=== PATIENT | female | born 1950 | race Caucasian/White ===

== ENCOUNTER → 2024-03-31 14:36 | Outpatient (REF) | payer OTHER, SELFPAY | LOC: HWRAD 14:36 | PROVIDERS: ATTENDING PHYSICIAN Nurse Practitioner Primary Care | DX: M79.651 Pain in right thigh (principal); M76.31 Iliotibial band syndrome, right leg; R22.41 Localized swelling, mass and lump, right lower limb | CPT/HCPCS: 73552; 76882 ==

== ENCOUNTER → 2024-04-05 09:30 | Outpatient (REF) | payer OTHER, SELFPAY | LOC: WDC 09:30 | PROVIDERS: ATTENDING PHYSICIAN Nurse Practitioner Primary Care | DX: Z13.820 Encounter for screening for osteoporosis (principal); Z12.31 Encounter for screening mammogram for malignant neoplasm of breast | CPT/HCPCS: 77063; 77067; 77080 ==

== ENCOUNTER 2024-04-24 07:20 | Emergency (ER) | payer OTHER, SELFPAY ==
[2024-04-24 07:25] VITALS: BP 124/85
[2024-04-24 08:01] LABS: % Basophils 0.7 % (0-2); % Eosinophils 1.8 % (0-6); % Immature Granulocytes 0.1 % (0-0.5); % Lymphocytes 18.3 % (20.5-51.1); % Monocytes 10.1 % (1.7-9.3); Absolute Basophils 0.1 10^3/uL (0-0.2); Absolute Eosinophils 0.1 10^3/uL (0-0.7); Absolute Lymphocytes 1.2 10^3/uL (1.2-3.4); Absolute Monocytes 0.7 10^3/uL (0.1-0.6); Absolute Neutrophils 4.7 10^3/uL (1.4-6.5); Hematocrit 41.9 % (37.0-47.0); Mean Corp Hgb Conc. 35.8 g/dL (33.0-37.0); Mean Corpuscular Hgb 31.3 pg (27.0-31.0); Mean Corpuscular Volume 87.5 fL (81.0-99.0); Mean Platelet Volume 9.9 fL (7.4-10.4); Nucleated Red Blood Cells % 0 %; Platelet Count 317 10^3/uL (130-400); Red Blood Cell Count 4.79 10^6/uL (4.20-5.40); Red Cell Dist. Width 12.3 % (11.5-14.5); White Blood Cell Count 6.8 10^3/uL (4.8-10.8)
[2024-04-24 08:05] LABS: ALT (SGPT) 27 U/L (0-35); AST (SGOT) 30 U/L (14-36); Albumin 4.7 g/dl (3.5-5.0); Alkaline Phosphatase 95 U/L (38-126); Blood Urea Nitrogen 11 mg/dl (7-17); Calcium 9.8 mg/dl (8.4-10.2); Carbon Dioxide 25 mmol/L (22-30); Chloride 104 mmol/L (98-107); Glucose 103 mg/dl (70-99); Sodium 140 mmol/L (135-145); Total Bilirubin 1.2 mg/dl (0.2-1.3); Total Protein 7.3 g/dl (6.3-8.2); eGFR > 60.00
[2024-04-24 08:17] LABS: Troponin I < 0.012 ng/ml
[2024-04-24 11:27] VITALS: BMI 39.0
--- NOTE | 2024-04-24 11:44 | ED.GENMED ---
History of Present Illness
General
Chief Complaint: Heart Rate Problem
Source: patient
Exam Limitations: none
Time Seen by Provider: 04/24/24 11:36
History of Present Illness
History of Present Illness:
See MDM
Past History
Past History
ED Past Medical History: Arrthythmia (Atrial fibrillation), Asthma, COPD and HTN
Social History
Tobacco: Former smoker
Alcohol: None
Drug: None
Phy Exam
Physical Exam
Physical Exam:
See MDM
Course
Orders/Labs/Results
Orders:
Orders
04/24/24 07:24
Electrocardiogram (*1) Urgent
Reason for Study: Bradycardia / Tachycardia
EKG- Treatment ONCE
04/24/24 07:32
CXR2 [CR Chest - 2 Views ] Urgent
Comment:
Reason For Exam: heart racing
04/24/24 07:37
Complete Blood Count/With Diff Urgent
Comprehensive Metabolic Panel Urgent
Troponin I Urgent
04/24/24 11:51
Consult Cardiology [CARDIOLOGY CONSULT] Urgent
Consulting Provider: Estevan Joel
Was physician already notified: Yes
04/24/24 13:56
Apixaban [Eliquis] 5 mg PO STAT STA
Abnormal Lab Results
04/24/24
07:37
MCH 31.3 H pg
(27.0-31.0)
Absolute Monos (auto) 0.7 H 10^3/uL
(0.1-0.6)
Lymphocytes % 18.3 L %
(20.5-51.1)
Monocytes % 10.1 H %
(1.7-9.3)
Glucose 103 H mg/dl
(70-99)
04/24/24 07:37
04/24/24 07:37
Vital Signs
Initial and Last Documented VS:
Initial Vital Signs
Temp Pulse Resp BP Pulse Ox
97.5 F 106 16 124/85 98
04/24/24 07:25 04/24/24 07:25 04/24/24 07:25 04/24/24 07:25 04/24/24 07:25
Last Documented Vital Signs
Temp Pulse Resp BP Pulse Ox
97.5 F 84 19 121/88 98
04/24/24 07:25 04/24/24 15:17 04/24/24 15:17 04/24/24 15:17 04/24/24 15:17
MDM/Problems Addressed
Differential Diagnosis Includes:
HPI and MDM Narrative:
73-year-old female presenting for evaluation of elevated heart rate. Patient does acknowledge that she feels weak. Her Apple Watch had indicated that her heart rate was fast. On arrival, EKG was performed showing A-fib with RVR. However, she
intermittently goes into a paced rhythm on the monitor. She denies chest pain or palpitations. She states she has required ablations and cardioversions in the past. Patient is currently on sotalol 80 mg twice daily
Blood work and chest x-ray performed prior to my evaluation. Chest x-ray clear and blood work without clinically significant abnormalities.
Patient is well-appearing and nontoxic and heart rate intermittently goes into a paced rhythm. Will discuss case with cardiology
Physical exam
General: Well appearing and non-toxic
HEENT: protecting airway
Neck: appears supple
CV: No evidence of cyanosis. Tachycardic and intermittently going between regular and irregular
Resp: No accessory muscle use
Abd: Non-distended
Extremities: No deformities
Neuro: alert
Psych: Normal affect
Skin: Intact
Problems Addressed including Acute and Chronic Conditions affecting care:
1. A-fib
Acuity: acute
Prognosis: stable
Details: Patient intermittently going between A-fib and paced rhythm. Blood work without clinically significant abnormalities.
Updates
11:50 AM Case discussed with cardiology who will evaluate at bedside
Cardiology evaluated patient and discussed continuing meds as previously prescribed and will set up outpatient cardioversion
Differential Diagnosis (but not limited to): A-fib,
Testing considered:
Drug therapy (if applicable): OTC meds, please see d/c instruction regarding Rx drugs
Amount and/or Complexity of Data Reviewed
Clinical info obtained from: Patient
External data reviewed: N/A
Labs I independently reviewed (but not limited to): Troponin normal
Radiology: N/A
Pulse Ox: not hypoxic
EKG independently reviewed: A-fib with intermittent paced complexes, normal axis, no STEMI
Desk Assistant: Intermittently between A-fib and ventricular paced rhythm
Critical Care: N/A
Risk of Complication:
Social Determinants of health: Good social support
Discussed with other providers: Cardiology
Escalation of Care includes Admit/Obs: After being observed in the Emergency Department, pt stable for discharge.
Occasional wrong word or 'sound a like' substitutions may have occurred due to the inherent limitations of voice recognition software. Read the chart carefully and recognize, using context, where substitutions have occurred.
*Critical Care Note
Total Time (30-74mins, 75-104mins- exclusive of procedures): Not Applicable
ED Attending Note
-
Portions of this chart may have been created with voice recognition software.� Occasional wrong word or��sound alike� substitutions may have occurred due to the inherent limitations of voice recognition software.
Discharge Plan
Departure
Patient Disposition: Home (Routine Discharge)
Date of Disposition: 04/24/24
Time of Disposition: 14:45
Patient with high blood pressure during this ER visit?: No
Condition: Good
Discharge Problem:
Atrial fibrillation
Instructions: Atrial Fibrillation (DC)
Prescriptions:
No Action
atorvastatin 40 MG tablet
40 mg PO HS
furosemide 20 MG tablet
20 mg PO DAILY
multivitamin Tablet
1 tab PO BID
metoprolol succinate 25 mg Tablet Extended Release 24 Hr
25 mg PO HS
losartan 100 mg Tablet
100 mg PO HS
Bioflex 310-88-17-40 mg Tablet
1 tab PO BID
Spiriva Respimat 2.5 mcg/actuation Mist
2 inh INHALATION DAILY
PreserVision AREDS-2 250-90-40-1 mg Capsule
1 tab PO BID
Magnesium Tourate 400mg
1 tab PO BID
Sucontral D
1 tab PO DAILY
oregano oil 1,500 mg Capsule
1,500 mg PO HS
Billings Concentrate
1 tab PO BID
coenzyme Q10 100 mg Tablet
100 mg PO DAILY
Probiotic (B. coagulans) 250 million cell Tablet,Chewable
250 cell PO BID
Mullum Extract 1 Dropper
1 drp PO BID
amlodipine 5 mg Tablet
5 mg PO HS Qty: 0 0RF
Eliquis 5 MG tablet
5 mg PO BID Qty: 0 0RF
omega-3 fatty acids 1,250 mg Capsule
1,250 mg PO BID
levalbuterol tartrate [Xopenex HFA] 45 mcg/actuation Hfa Aerosol Inhaler
1 puff INHALATION Q6H PRN (Reason: sob)
My Community Mushrooms
1 cap PO BID
calcium 600 mg Capsule
600 mg PO BID
biotin 1,000 mcg Tablet,Chewable
1,000 mcg PO HS
silver sulfadiazine [Silvadene] 1 % cream
1 applic topical BID PRN (Reason: Skin issues)
sotalol 80 mg tablet
80 mg PO BID Qty: 180 5RF
Referrals:
Jaelyn Garcia CRNP [Family Provider] -
Interventions
Interventions:
*Risk Screen - Suicide Last Done: 04/24/24 07:25
*General Assessment Last Done: 04/24/24 11:33
*Neglect/Abuse Screening Last Done: 04/24/24 07:25
ED- Fall Risk Assessment Last Done: 04/24/24 11:36
*ED COVID-19 Vaccine History Last Done: 04/24/24 11:33
*Nursing Disposition Last Done: 04/24/24 15:17
ED- Cardiac Assessment Last Done: 04/24/24 11:35
ED- Pulmonary Assessment Last Done: 04/24/24 11:35
Discharge Date and Time
Discharge Date/Time: 04/24/24 15:18
Print Language: INDONESIAN
--- NOTE | 2024-04-24 12:21 | CON.CAR ---
Addendum entered and electronically signed by Estevan Joel MD 04/24/24 16:19:
I saw and examined the patient.
The GRADUATE [employer]NSH[employer]'s note was reviewed and I agree with the note.
Comment: She has symptomatic AFib despite rates that are not that elevated. Her last cardioversion was in about September 2023. AFib is just of several days duration. Seems like she is at max sotalol dose and is not interested in amiodarone. I would
not favor yet another repeat ablation (she has had 5 prior ablations, but perhaps only 2 AFib PVIs/LA ablations). She had prolonged QTc with dofetilide.
We will arrange for an elective outpatient cardioversion. I reviewed that 1-2 ablations per year is reasonable but more than that and we may need to consider moving to a pure rate control strategy.
Original Note:
Consultation
Consultation Request
Date/Time Consultation Requested: 04/24/2024 11:50
Date/Time Consultation Performed: 04/24/2024 13:30
Requesting Provider: Dr. Hidalgo
Performing Provider: THANG Mendoza for Dr. Joel
Reason for Consultation: Paroxysmal atrial fibrillation
Medical History
-
Chief Complaint: Elevated heart rate
History of Present Illness:
Katelynn Mcdonough is a 73-year-old female (known to Dr. Galvez and Dr. Zurita), with persistent atrial fibrillation (recurrent after ablation 2020, status post re-do ablation 2022, now on sotalol), atrial flutter Saint Rober dual-chamber pacemaker, chronic
HFpEF, mild/moderate mitral regurgitation, CVA, left carotid stenosis, hypertension, dyslipidemia, type 2 diabetes mellitus, and WILLIE on CPAP who presented to the emergency room with a chief complaint of elevated heart rate. She drove home from
[place] after spending some time visiting her daughter. Last evening at approximately 5:30 PM her Apple Watch alerted her of an elevated heart rate along with atrial fibrillation. She has no palpitations, dizziness, nor shortness of breath.
She does endorse some fatigue despite sleeping all night. Cardiology was consulted for rhythm management.
Past Medical History
Past Medical History: Arrhythmias (Persistent atrial fibrillation [status post PVI x 2, on sotalol], atrial flutter type), Asthma, Cancer (Ovarian), CHF, HTN, Hypercholesterolemia, NIDDM, Valvular Disease (Mitral regurgitation) and Other (Left
carotid stenosis, WILLIE on CPAP)
Past Surgical History: and Gynecological
Social History
Tobacco: Former Smoker
Employment: Retired
Family History
Family History: Reviewed & Not Pertinent
Allergies / Home Medications
Allergy/AdvReac Type Severity Reaction Status Date / Time
vancomycin Allergy Mild Itching Verified 04/24/24 07:31
fosinopril [From Monopril] Allergy ALL Verified 04/24/24 07:31
'-PRILL'
MEDS CAUSE
COUGH
pollen extracts Allergy runny Verified 04/24/24 07:31
nose, cough
�Medication �Instructions �Recorded �Confirmed �Type
atorvastatin 40 mg tablet 40 mg PO HS High cholesterol 11/29/20 11/10/22 History
furosemide 20 mg tablet 20 mg PO DAILY Fluid 11/29/20 11/10/22 History
retention/Swelling
Bacillus coagulans 250 million 250 cell PO BID 05/01/22 11/10/22 History
cell chewable tablet (Probiotic
(B. coagulans))
Billings Concentrate 1 tab PO BID 05/01/22 11/10/22 History
Magnesium Tourate 400mg 1 tab PO BID 05/01/22 11/10/22 History
Mullum Extract 1 Dropper 1 drp PO BID 05/01/22 11/10/22 History
Sucontral D 1 tab PO DAILY 05/01/22 11/10/22 History
amlodipine 5 mg tablet 5 mg PO HS #0 tabs 05/01/22 11/10/22 Rx
apixaban 5 mg tablet (Eliquis) 5 mg PO BID Blood clot 05/01/22 11/10/22 Rx
prevention/tx #0 tabs
coenzyme Q10 100 mg tablet 100 mg PO DAILY 05/01/22 11/10/22 History
losartan 100 mg tablet 100 mg PO HS 05/01/22 11/10/22 History
metoprolol succinate 25 mg 25 mg PO HS 05/01/22 11/10/22 History
tablet,extended release 24 hr
multivitamin 1 tab PO BID 05/01/22 11/10/22 History
oregano oil 1,500 mg capsule 1,500 mg PO HS 05/01/22 11/10/22 History
tiotropium bromide 2.5 2 inh inhalation DAILY 05/01/22 11/10/22 History
mcg/actuation mist for inhalation
(Spiriva Respimat)
vit C 250 mg-vit E 90 mg-zinc 40 1 tab PO BID 05/01/22 11/10/22 History
mg-copper 1 [id number]
capsule (PreserVision AREDS-2)
vit 1 tab PO BID 05/01/22 11/10/22 History
[id number]-[id number]
500 mg-50 mg-25 mg-40 mg tablet
(Bioflex)
My Community Mushrooms 1 cap PO BID 09/23/22 11/10/22 History
biotin 1,000 mcg chewable tablet 1,000 mcg PO HS 09/23/22 11/10/22 History
calcium 600 mg capsule 600 mg PO BID 09/23/22 11/10/22 History
levalbuterol tartrate 45 1 puff inhalation Q6H PRN sob 09/23/22 11/10/22 History
mcg/actuation aerosol inhaler
(Xopenex HFA)
omega-3 fatty acids 1,250 mg 1,250 mg PO BID 09/23/22 11/10/22 History
capsule
silver sulfadiazine 1 % topical 1 applic topical BID PRN Skin 11/10/22 11/10/22 History
cream (Silvadene) issues
sotalol 80 mg tablet 80 mg PO BID #180 tabs 11/12/22 Rx
Review of Systems
-
History Source: Patient
All other systems: Negative unless noted
Constitutional: Fatigue
EENT: No Symptoms
Respiratory: No Symptoms
Cardiac: No Symptoms
Abdomen/GI: No Symptoms
: No Symptoms
Musculoskeletal: No Symptoms
Skin: No Symptoms
Neurological: No Symptoms
Endocrine: No Symptoms
Hematologic/Lymphatic: No Symptoms
Physical Exam
Vital Signs
Temp Pulse Resp BP Pulse Ox
97.5 F 104 20 124/85 98
04/24/24 07:25 04/24/24 11:32 04/24/24 11:32 04/24/24 07:25 04/24/24 11:35
Lab Results
04/24/24 07:37
04/24/24 07:37
Troponin I < 0.012 ng/ml 04/24/24 07:37
Physical Exam
General: Well Developed, Well Nourished, No Apparent Distress and Comfortable
HEENT: Normocephalic and Anicteric
Respiratory: Clear and Non Labored Respirations
Cardiac: S1/S2 and Irregular Rhythm
Breast: Deferred by me
GI: Soft, Non Tender, Non Distended and Normal Bowel Sounds
Rectal: Deferred by Provider
Genito-urinary: No Costovertebral Tender
Musculoskeletal: No Clubbing, No Cyanosis and No Edema
Skin: Warm and Dry
Neuro: AO x 3
Hematologic/Lymphatic: No Lymphadenopathy
Psych: Calm
Impression / Plan
-
Persistent atrial fibrillation
-Some fatigue but otherwise asymptomatic
-Continue sotalol, outpatient cardioversion this week
-Oral Anticoagulation: Apixaban 5 mg twice daily, she denies missed doses at home, no since arrival to ER, STAT dose ordered
-[id number]: score 8 (Heart failure, HTN, Diabetes Mellitus, prior Stroke/TIA, Vascular disease, age 65-74, female gender)
HFpEF, chronic
Prior CVA
Asthma, managed by pulmonary
Atherosclerosis of carotid artery, continue atorvastatin
Former smoker, continued cessation recommended
Data Reviewed
-
EKG: Report Reviewed by me
Medical Tests (Nuc Med, Echo etc): Report Reviewed by me
Labs: Labs Reviewed by me
Old Records: Reviewed
[2024-04-24 14:00] VITALS: BP 118/87
[2024-04-24 15:17] VITALS: BP 121/88
== END 2024-04-24 15:18 | disposition home or self-care (01) ==
LOC: EMR 07:20
PROVIDERS: Student in an Organized Health Care Education/Training Program; CONSULT PHYSICIAN Internal Medicine Cardiovascular Disease; EMERGENCY PHYSICIAN Emergency Medicine; FAMILY PHYSICIAN Nurse Practitioner Primary Care
DX: I48.91 Unspecified atrial fibrillation (principal); J44.89 Other specified chronic obstructive pulmonary disease; E11.9 Type 2 diabetes mellitus without complications; E78.00 Pure hypercholesterolemia, unspecified; G47.33 Obstructive sleep apnea (adult) (pediatric); I11.0 Hypertensive heart disease with heart failure; I50.32 Chronic diastolic (congestive) heart failure; I34.0 Nonrheumatic mitral (valve) insufficiency; Z79.01 Long term (current) use of anticoagulants; Z79.899 Other long term (current) drug therapy; Z83.49 Family history of other endocrine, nutritional and metabolic diseases; Z85.43 Personal history of malignant neoplasm of ovary; Z86.73 Personal history of transient ischemic attack (TIA), and cerebral infarction without residual deficits; Z87.891 Personal history of nicotine dependence
CPT/HCPCS: 99283; 71046; 80053; 84484; 85025; 93005

== ENCOUNTER 2024-05-01 07:21 | Day surgery (SDC) | payer OTHER, SELFPAY ==
[2024-05-01 08:12] LABS: Glucose - Point of Care 110 mg/dl (70-99)
[2024-05-01 08:38] VITALS: BMI 39.7
--- NOTE | 2024-05-01 09:47 | ITS.CL.CARDI ---
Culinary Director - Cardioversion
Cardioversion
Procedure Report:
Date of Procedure: May 01 2024
Procedure: Cardioversion
Indication: Symptomatic atrial flutter
Performing Physician: James Pizano DO, FACC
Technique: The patient was brought to the holding area. Signed informed consent was obtained. A time out was called and performed. The patient was anesthetized by the anesthesia service. Anticoagulation status was reviewed and appropriate. R2 pads
were placed anteriorly and posteriorly. A 225 J synchronized biphasic shock restored normal sinus rhythm without significant bradycardia. There were no complications.
Conclusion: Uncomplicated cardioversion from atrial flutter to sinus rhythm.
Recommendation: Routine post cardioversion care. Continue adobe layer anticoagulation.
== END 2024-05-01 10:51 | disposition home or self-care (01) ==
LOC: CATH 07:21
PROVIDERS: ATTENDING PHYSICIAN Student in an Organized Health Care Education/Training Program; FAMILY PHYSICIAN Nurse Practitioner Primary Care; OTHER PHYSICIAN Internal Medicine
DX: I48.92 Unspecified atrial flutter (principal); I48.19 Other persistent atrial fibrillation; I11.0 Hypertensive heart disease with heart failure; I50.32 Chronic diastolic (congestive) heart failure; E11.9 Type 2 diabetes mellitus without complications; G47.33 Obstructive sleep apnea (adult) (pediatric); Z85.43 Personal history of malignant neoplasm of ovary; Z86.73 Personal history of transient ischemic attack (TIA), and cerebral infarction without residual deficits; Z87.891 Personal history of nicotine dependence; Z79.01 Long term (current) use of anticoagulants
CPT/HCPCS: 82962; 92960; 93005

== ENCOUNTER 2024-07-14 07:15 | Day surgery (SDC) | payer OTHER, SELFPAY ==
[2024-07-12 09:12] VITALS: BMI 37.8
[2024-07-14 08:10] VITALS: BMI 37.8
[2024-07-14 09:07] LABS: Glucose - Point of Care 84 mg/dl (70-99)
== END 2024-07-14 12:56 | disposition home or self-care (01) ==
LOC: CATH 07:15
PROVIDERS: ATTENDING PHYSICIAN Internal Medicine; FAMILY PHYSICIAN Nurse Practitioner Primary Care; OTHER PHYSICIAN Internal Medicine
DX: I48.91 Unspecified atrial fibrillation (principal); I08.3 Combined rheumatic disorders of mitral, aortic and tricuspid valves; I70.0 Atherosclerosis of aorta; Z86.73 Personal history of transient ischemic attack (TIA), and cerebral infarction without residual deficits; I48.92 Unspecified atrial flutter; I11.0 Hypertensive heart disease with heart failure; I50.32 Chronic diastolic (congestive) heart failure; E78.5 Hyperlipidemia, unspecified; I65.22 Occlusion and stenosis of left carotid artery; Z79.85 Long-term (current) use of injectable non-insulin antidiabetic drugs; E11.9 Type 2 diabetes mellitus without complications; G47.33 Obstructive sleep apnea (adult) (pediatric); J44.89 Other specified chronic obstructive pulmonary disease; Z87.891 Personal history of nicotine dependence; Z90.710 Acquired absence of both cervix and uterus; Z85.43 Personal history of malignant neoplasm of ovary; H35.30 Unspecified macular degeneration; M85.80 Other specified disorders of bone density and structure, unspecified site; K44.9 Diaphragmatic hernia without obstruction or gangrene; K21.9 Gastro-esophageal reflux disease without esophagitis; D18.03 Hemangioma of intra-abdominal structures; Z79.899 Other long term (current) drug therapy; Z79.01 Long term (current) use of anticoagulants; Z88.1 Allergy status to other antibiotic agents; Z95.0 Presence of cardiac pacemaker; Q21.12 Patent foramen ovale
CPT/HCPCS: 93312; 93320; 93325; 82962; 87040; 93005

== ENCOUNTER → 2024-08-10 13:30 | Outpatient (REF) | payer OTHER, SELFPAY | LOC: MRI 13:30 | PROVIDERS: ATTENDING PHYSICIAN Nurse Practitioner Primary Care | DX: M79.651 Pain in right thigh (principal); G57.11 Meralgia paresthetica, right lower limb; Z85.43 Personal history of malignant neoplasm of ovary | CPT/HCPCS: 73720; 76014; 76015; A9575 ==

== ENCOUNTER 2024-08-30 07:19 | Day surgery (SDC) | payer OTHER, SELFPAY | END 2024-08-30 10:20 | disposition home or self-care (01) | LOC: CATH 07:19 | PROVIDERS: ATTENDING PHYSICIAN Internal Medicine; FAMILY PHYSICIAN Nurse Practitioner Primary Care | DX: I48.92 Unspecified atrial flutter (principal); I48.91 Unspecified atrial fibrillation; I08.1 Rheumatic disorders of both mitral and tricuspid valves; I11.0 Hypertensive heart disease with heart failure; I50.32 Chronic diastolic (congestive) heart failure; E78.5 Hyperlipidemia, unspecified; I49.5 Sick sinus syndrome; Z95.0 Presence of cardiac pacemaker; E11.40 Type 2 diabetes mellitus with diabetic neuropathy, unspecified; G47.33 Obstructive sleep apnea (adult) (pediatric); K21.9 Gastro-esophageal reflux disease without esophagitis; Z86.73 Personal history of transient ischemic attack (TIA), and cerebral infarction without residual deficits; Z85.43 Personal history of malignant neoplasm of ovary; Z87.891 Personal history of nicotine dependence; Z79.01 Long term (current) use of anticoagulants; Z79.85 Long-term (current) use of injectable non-insulin antidiabetic drugs | CPT/HCPCS: 93312; 93320; 93325; 92960; 93005 ==

== ENCOUNTER 2024-10-03 10:28 | Day surgery (SDC) | payer OTHER, SELFPAY ==
[2024-09-22 09:23] VITALS: BMI 38.6
[2024-09-22 09:28] LABS: % Basophils 0.8 % (0-2); % Immature Granulocytes 0.2 % (0-0.5); % Lymphocytes 22.4 % (20.5-51.1); % Monocytes 9.2 % (1.7-9.3); % Neutrophils 62.4 % (42.2-75.2); Absolute Basophils 0.1 10^3/uL (0-0.2); Absolute Eosinophils 0.3 10^3/uL (0-0.7); Absolute Lymphocytes 1.3 10^3/uL (1.2-3.4); Absolute Monocytes 0.6 10^3/uL (0.1-0.6); Absolute Neutrophils 3.7 10^3/uL (1.4-6.5); Hematocrit 35.3 % (37.0-47.0); Mean Corpuscular Hgb 30.3 pg (27.0-31.0); Mean Corpuscular Volume 89.1 fL (81.0-99.0); Mean Platelet Volume 9.7 fL (7.4-10.4); Nucleated Red Blood Cells % 0 %; Platelet Count 241 10^3/uL (130-400); Red Blood Cell Count 3.96 10^6/uL (4.20-5.40); Red Cell Dist. Width 11.9 % (11.5-14.5)
[2024-09-22 09:58] LABS: ALT (SGPT) 23 U/L (0-35); AST (SGOT) 26 U/L (14-36); Albumin 4.4 g/dl (3.5-5.0); Alkaline Phosphatase 71 U/L (38-126); Blood Urea Nitrogen 14 mg/dl (7-17); Calcium 9.9 mg/dl (8.4-10.2); Carbon Dioxide 30 mmol/L (22-30); Chloride 108 mmol/L (98-107); Estimated Creatinine Clearance 82 ml/min; Glucose 96 mg/dl (70-99); Potassium 4.4 mmol/L (3.5-5.1); Sodium 141 mmol/L (135-145); eGFR > 60.00
[2024-10-03] VITALS (12 sets, daily range): BP systolic 115–171; BP diastolic 58–96; BMI 38.4
[2024-10-03 11:37] LABS: Glucose - Point of Care 95 mg/dl (70-99)
[2024-10-03 14:31] LABS: Glucose - Point of Care 81 mg/dl (70-99)
[2024-10-03 14:52] LABS: Glucose - Point of Care 93 mg/dl (70-99)
[2024-10-03 15:15] LABS: ACT-LR - POC 392 Seconds (116-155)
[2024-10-03 15:37] LABS: ACT-LR - POC 369 Seconds (116-155)
--- NOTE | 2024-10-03 16:43 | W.PN.UPDATE ---
Update Note
Progress Note Update
AFIB / A flutter ablation:
Ms. Mcdonough is a very pleasant 74 yr old woman with medical history significant for SSS s/p Pittman dual chamber PPM, symptomatic paroxysmal atrial fibrillation s/p AF ablation on 2015, 2020 and 2012 who is noted to have fast arrhythmias on her
pacemaker with AF and AFl and is here in the EP lab for atrial fibrillation / flutter ablation
Date of Procedure:
10/03/2024
Indications:
Symptomatic persistent atrial fibrillation / atrial flutter
Pre-Operative Diagnosis:
Persistent atrial fibrillation / atrial flutter
Post-Operative Diagnosis:
Persistent atrial fibrillation / atrial flutter
Procedure Performed:
Redo atrial fibrillation ablation with pulmonary vein isolation
Roof line formation for atypical roof dependent atrial flutter
Posterior wall isolation ablation
Ablation of anterior wall flutter line of block creation for willis-mitral flutter
Focal atrial tachycardia at the left atrial appendage
Cavo tricuspid line of block creation
Micro-reentry atrial flutter/tachycardia at the lateral wall of right atrium
Focal atrial tachycardia from Carli Terminalis
Sheath and Catheter Placement:
Sheaths:
��������� Agilis sheath in right femoral vein upgraded from 8Fr in right femoral vein
��������� 9Fr in right femoral vein
Catheters:
��������� The Affera Sphere 9 catheter -bidirectional D/F� - at locations of HRA, RV, LA and LV.
��������� ICE catheter -AccuNav -� at locations of RA, SVC, and RV.
��������� Bard Decapolar in RA and CS
[2024-10-03 16:52] LABS: Glucose - Point of Care 115 mg/dl (70-99)
[2024-10-03] MEDS: BETAPACE 80 MG PO (20:09)
--- NOTE | 2024-10-03 21:50 | PTCARENOTE ---
Rec'd pt at change of shift. Pt denies any pain or discomfort. R femoral vein suture removed as ordered at 20:20 then maintained on bedrest for additional 30 minutes. Pt ambulated with staff assistance after that time with minimal assistance.
Dressing remains CDI. Pt aware of activity restriction and agrees to ambulate only with staff assistance. Pt resting with call layne in reach. See MAR and flowchart for full pt care and assessment.
[2024-10-03] MEDS: PRADAXA 150 MG PO (22:20)
[2024-10-03] MEDS: COZAAR 100 MG PO (22:20)
[2024-10-03] MEDS: LIPITOR 40 MG PO (22:20)
[2024-10-04 04:00] VITALS: BP 132/61
[2024-10-04 04:28] VITALS: BP 132/61
[2024-10-04 04:31] VITALS: BMI 38.4
--- NOTE | 2024-10-04 04:40 | DOWNTIME ---
There was a [employer] Downtime on 10/03/2024 from 0100 to 10/04/2024 at 0415. Downtime documentation of patient's care, including medication administrations, has been reconciled in the electronic record per guidelines. Refer to the
patient's paper chart under the miscellaneous tab to see printed paper medication records and downtime forms.
[2024-10-04 05:37] LABS: Blood Urea Nitrogen 17 mg/dl (7-17); Carbon Dioxide 22 mmol/L (22-30); Chloride 111 mmol/L (98-107); Estimated Creatinine Clearance 81 ml/min; Glucose 146 mg/dl (70-99); Magnesium 1.9 mg/dl (1.6-2.3); Potassium 4.3 mmol/L (3.5-5.1); Sodium 139 mmol/L (135-145); eGFR > 60.00
[2024-10-04 05:40] LABS: Hematocrit 34.8 % (37.0-47.0); Hemoglobin 12.2 g/dL (12.0-16.0); Mean Corp Hgb Conc. 35.1 g/dL (33.0-37.0); Mean Corpuscular Hgb 30.3 pg (27.0-31.0); Mean Corpuscular Volume 86.4 fL (81.0-99.0); Mean Platelet Volume 9.9 fL (7.4-10.4); Platelet Count 254 10^3/uL (130-400); Red Blood Cell Count 4.03 10^6/uL (4.20-5.40); Red Cell Dist. Width 12.1 % (11.5-14.5); White Blood Cell Count 9.1 10^3/uL (4.8-10.8)
[2024-10-04] MEDS: BETAPACE 80 MG PO (07:48)
[2024-10-04] MEDS: PRADAXA 150 MG PO (07:49)
[2024-10-04] MEDS: LASIX 20 MG PO (07:49)
[2024-10-04 07:51] VITALS: BP 124/83
[2024-10-04] MEDS: SPIRIVA RESPIMAT 2.5 MCG 2 PUFF INH (08:02)
--- NOTE | 2024-10-04 08:10 | W.PN.CD ---
Today's Communication / Plan
-
- PPM interrogation today
- Discharge home today
Impression / Plan
-
Katelynn Mcdonough is a 73-year-old female (known to Dr. Galvez and Dr. Zurita), with persistent atrial fibrillation (recurrent after ablation 2015, 2020, status post re-do ablation 2022, now on sotalol), atrial flutter Saint Rober dual-chamber pacemaker
(2022), chronic HFpEF, mild/moderate mitral regurgitation, CVA, left carotid stenosis, hypertension, dyslipidemia, type 2 diabetes mellitus, and WILLIE on CPAP now s/p Redo AF ablation on 10/03/24 with extensive scarrring in both atria needing ablation
of various atrial flutters and tachycardias using pulsed field ablation.
Persistent AF/Flutter
-Redo ablation 10/03/24 included follwoing ablations.
Redo atrial fibrillation ablation with pulmonary vein isolation
Roof line formation for atypical roof dependent atrial flutter
Posterior wall isolation ablation
Ablation of anterior wall flutter line of block creation for willis-mitral flutter
Focal atrial tachycardia at the left atrial appendage
Cavo tricuspid line of block creation
Micro-reentry atrial flutter/tachycardia at the lateral wall of right atrium
Focal atrial tachycardia from Carli Terminalis
-Oral Anticoagulation: Apixaban 5 mg twice daily
-[id number]: score 8 (Heart failure, HTN, Diabetes Mellitus, prior Stroke/TIA, Vascular disease, age 65-74, female gender)
SSS
-s/p PPM in 2022
- The AT was close to atrial lead
- the ablation caused stunning effect and the threshold was elevated. Output increased.
- A paced rhythm this AM.
- Increased base rate from 60 bpm to 70 bpm.
HFpEF, chronic
Prior CVA
Asthma, managed by pulmonary
Atherosclerosis of carotid artery, continue atorvastatin
Former smoker, continued cessation recommended
Physical Exam
Vital Signs/Labs
Vital Signs
Temp Pulse Resp BP Pulse Ox
98.6 F 73 18 124/83 94
10/04/24 04:28 10/04/24 08:06 10/04/24 08:06 10/04/24 07:51 10/04/24 08:06
10/03/24 10/04/24 10/05/24
06:59 06:59 06:59
Actual Weight 99.8 kg
10/04/24 04:10
10/04/24 04:10
Magnesium 1.9 mg/dl (1.6-2.3) 10/04/24 04:10
Physical Exam
Constitutional: No acute distress and Comfortable
EENT: Anicteric and Moist mucous membranes
Cardiovascular: Rhythm & rate is regular, Pedal edema is absent, JVD pressure is normal and Systolic murmur absent
Respiratory: Respiratory effort normal, Lungs clear to auscul. and Wheeze Absent
GI: Soft, Non tender and Normal bowel sounds
Neuro/Psych: Alert, Oriented, AO x 3 and Motor deficits absent
Other: Cath Site and Cardiac Device Site
Data Reviewed
-
Date of Service: October 04, 2024
Medical Decision Making: Reviewed Test Results, Test Interpretation and Review of Case with other Provider
EKG: Tracing Personally Visualized and interpreted
X-Ray/CT/US/MRI/NUC/PET: Image Personally Visualized and interpreted
Labs: Labs Reviewed by me
Old Records: Reviewed
[2024-10-04 08:32] LABS: ACT-LR - POC > 397 Seconds (116-155)
[2024-10-04 08:32] LABS: ACT-LR - POC > 397 Seconds (116-155)
--- NOTE | 2024-10-04 10:05 | W.DS.TRANS ---
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
-
Discharge Instructions:
Discharge Diagnosis/Procedures Atrial fibrillation post ablation
Diet Low Cholesterol
Driving Restrictions No driving for 24 hours
Instructions:
Stand-Alone Forms: DC Instructions- Cath/EP Lab
Changes to Home Medications: No
Discharge Medications:
DC Medications w/original date entered in [facility]
atorvastatin 40 mg tablet 40 mg PO HS High cholesterol 11/29/20
furosemide 20 mg tablet 20 mg PO MOWEFR Fluid retention/Swelling 11/29/20
losartan 100 mg tablet 100 mg PO HS 05/01/22
multivitamin 1 tab PO DAILY 05/01/22
tiotropium bromide 2.5 mcg/actuation mist for inhalation (Spiriva Respimat) 2 inh inhalation DAILY 05/01/22
vit [id number]-aiqgoyk-rpkwqqixb-[id number] 500 mg-50 mg-25 mg-40 mg tablet (Bioflex) 1 tab PO BID 05/01/22
silver sulfadiazine 1 % topical cream (Silvadene) 1 applic topical BID PRN Skin issues 11/10/22
sotalol 80 mg tablet 80 mg PO BID #180 tabs 11/12/22
Lion's Ham Supplement 1 cap PO DAILY 07/11/24
Mullein 30 drp PO HS 07/11/24
Maypearl Tail Mushroom Supplemen 2 cap PO DAILY 07/11/24
ashwagandha root extract 300 mg tablet 600 mg PO HS 07/11/24
berberine chloride 500 mg capsule 1,000 mg PO DAILY 07/11/24
coQ10 (ubiquinol) 100 mg capsule 100 mg PO BID 07/11/24
potassium citrate 99 mg capsule 99 mg PO HS 07/11/24
vit C 250 mg-vit E 90 mg-zinc 10 mg-copper 1 cf-qyfipd-jyulyc capsule (Eye Health Vitamin-Mineral) 3 cap PO DAILY 07/11/24
magnesium glycinate 400 mg PO HS 07/14/24
calcium carbonate 1,000 mg PO DAILY 08/30/24
dabigatran etexilate 150 mg capsule 150 mg PO BID 08/30/24
tirzepatide 10 mg/0.5 mL subcutaneous pen injector (Mounjaro) 10 mg SC QWEEK 09/20/24
Cbd Gummy 1 tab PO HS 10/03/24
ascorbic acid 125 mg-collagen, hydrolyzed 740 mg capsule (Collagen Plus Vitamin C) 1 cap PO HS 10/03/24
omega 3-dha 200 mg-epa 300 mg-fish oil 1,000 mg capsule (Ultra [place]-3) 2 cap PO HS 10/03/24
oregano oil 50 mg-flaxseed oil 25 mg capsule 1 cap PO HS 10/03/24
sour villasenor extract 1,000 mg capsule 1,000 mg PO BID 10/03/24
Home Medication Changes
Pending Results: No
--- NOTE | 2024-10-04 10:47 | PTCARENOTE ---
Pt's L EJ #20G catheter/INT D/C'd without incident. Pt kept in bed for 1/2 hr. L neck dsg remains D+I. D/C instructions reviewed with Pt, she expressed understanding. R femoral dsg also remains D+I.
--- NOTE | 2024-10-04 11:27 | CM ---
CM following for DC planning needs.
Met w/ patient at bedside. Pt. anticipating DC; offers no concerns or needs.
Pt. is functionally indep. at baseline. Lives alone.
Plan is for home, no needs.
[2024-10-04 11:52] VITALS: BP 133/70
== END 2024-10-04 14:01 | disposition home or self-care (01) ==
LOC: CATH 10:28
PROVIDERS: Nurse Practitioner Adult Health; ATTENDING PHYSICIAN Internal Medicine Cardiovascular Disease; FAMILY PHYSICIAN Nurse Practitioner Primary Care; OTHER PHYSICIAN Internal Medicine
DX: I48.19 Other persistent atrial fibrillation (principal); I47.19 Other supraventricular tachycardia; I48.3 Typical atrial flutter; E11.69 Type 2 diabetes mellitus with other specified complication; E66.9 Obesity, unspecified; E78.5 Hyperlipidemia, unspecified; G47.33 Obstructive sleep apnea (adult) (pediatric); I11.0 Hypertensive heart disease with heart failure; I34.0 Nonrheumatic mitral (valve) insufficiency; I49.5 Sick sinus syndrome; I50.32 Chronic diastolic (congestive) heart failure; I65.22 Occlusion and stenosis of left carotid artery; J44.89 Other specified chronic obstructive pulmonary disease; K21.9 Gastro-esophageal reflux disease without esophagitis; M48.00 Spinal stenosis, site unspecified; M85.80 Other specified disorders of bone density and structure, unspecified site; Z01.810 Encounter for preprocedural cardiovascular examination; Z79.01 Long term (current) use of anticoagulants; Z79.02 Long term (current) use of antithrombotics/antiplatelets; Z79.85 Long-term (current) use of injectable non-insulin antidiabetic drugs; Z79.899 Other long term (current) drug therapy; Z85.43 Personal history of malignant neoplasm of ovary; Z87.891 Personal history of nicotine dependence; Z90.710 Acquired absence of both cervix and uterus; Z88.1 Allergy status to other antibiotic agents; Z95.0 Presence of cardiac pacemaker; H53.9 Unspecified visual disturbance; I69.898 Other sequelae of other cerebrovascular disease; R26.89 Other abnormalities of gait and mobility
CPT/HCPCS: C1769; C1730; C1766; C1894; C1892; C1759; C1733; 36415; 80048; 80053; 82962; 83735; 85025; 85027; 85347; 86850; 86900; 86901; 93005; 93655; 93656; 93657; 94640

== ENCOUNTER 2024-12-01 09:22 | Day surgery (SDC) | payer OTHER, SELFPAY ==
--- NOTE | 2024-11-29 12:50 | HPS.HSE ---
Family Physician
-
Family Physician: NOT KNOW UNKNOWN - PT DOES
Chief Complaint
-
Persistent atrial fibrillation.
History of Present Illness
The patient is a 74 year old female presenting today for persistent atrial fibrillation. She also has underlying typical atrial flutter. The patient reports a history of disturbing palpitations, fatigue, lightheadedness, and dizziness
secondary to her atrial arrhythmias. She has previously undergone 3 ablations, with the last occurring in September 2024, and 3 cardioversions. Her last cardioversion took place in August of this year. She is on current pharmacological therapy with Sotalol.
She does report compliance with Dabigatran for oral anticoagulation due to a [id number] of 8. On November 21, 2024, she woke up with an elevated heart rate and she noted that her palpitations and fatigue had returned. Her watch determined an
irregular heart rhythm but was inconclusive for atrial fibrillation. It is recommended she proceed with a cardioversion at this time for further arrhythmia management. She denies any current complaints today such as chest pain, shortness of breath,
nausea, vomiting, diarrhea, cough, sore throat, or fever.
Medical History
Past Medical History
Past Medical History: Reports Other
Additional Past Medical History:
1. Persistent atrial fibrillation and typical atrial flutter, status post ablation x3 and cardioversion x3; pharmacological therapy with Sotalol and oral anticoagulation with Dabigatran.
2. PVCs.
3. Hypertension.
4. Hyperlipidemia.
5. Left internal carotid artery stenosis, 50-69%.
6. Sick sinus syndrome, status post St[employer] Rober dual-chamber pacemaker 10/2022.
7. Congestive heart failure, preserved ejection fraction.
8. COPD with asthmatic component.
9. Obstructive sleep apnea, CPAP compliant.
10. Non-insulin dependent diabetes with neuropathy.
11. GERD.
12. Hiatal hernia.
13. Splenic hemangioma.
14. 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
15. Chronic right cerebellar microhemorrhage on brain MRI 2021.
16. Degenerative disc disease.
17. Left lower extremity malignant tumor, >10 years ago, status post resection.
18. Ovarian cancer, >10 years ago, status post hysterectomy.
19. Macular degeneration.
20. Osteopenia.
21. Obesity, BMI 38.5.
22. Remote history of tobacco abuse.
Past Surgical History: Reports Other
Additional Past Surgical History:
1. Atrial fibrillation x3.
2. Cardioversion x3.
3. St. Rober dual-chamber pacemaker implant.
4. Total abdominal hysterectomy.
5. Left lower extremity tumor excision.
6. .
7. Cataract extraction.
Social History
Tobacco: Former Smoker (She is former 1 pack per day cigarette smoker who quit tobacco altogether 39 years ago. )
Alcohol: None
Living: Alone (in a modular home. )
Family History
Family History: Not pertinent
Allergies / Home Medications
Allergy/Medication List:
Home medications:
1. Berberine Cl 1000 mg p.o. daily.
2. Atorvastatin 40 mg p.o. at bedtime.
3. Dabigatran 150 mg p.o. twice a day.
4. Furosemide 20 mg p.o. Wednesday, Wednesday, Wednesday.
5. Losartan 100 mg p.o. at bedtime.
6. Mounjaro 10 mg subcutaneous weekly.
7. Sotalol 80 mg p.o. twice a day.
8. Spiriva two inhalations daily.
9. Bioflex 1 tablet p.o. twice a day.
10. Calcium carbonate 1000 mg p.o. at bedtime.
11. [employer] web CBD/melatonin 2 gummies p.o. at bedtime.
12. Billings concentrate 500 mg p.o. twice a day.
13. Collagen 1 capsule p.o. at bedtime.
14. CoQ10 100 mg p.o. twice a day.
15. Eye health 3 capsules p.o. daily.
16. Lion's Ham 2 capsules p.o. daily.
17. Magnesium glycinate 400 mg p.o. at bedtime.
18. Multivitamin 1 tablet p.o. daily.
19. [place] 3 2 capsules p.o. at bedtime.
20. Oregano oil-flaxseed oil 1 capsule p.o. at bedtime.
21. Potassium citrate 99 mg p.o. at bedtime.
22. Silvadene 1 application topical daily as needed.
23. Esko tail mushroom supplement 2 capsules p.o. daily.
ALLERGIES: Trazodone. Vancomycin. KATHRINE inhibitors. Monopril. Metformin, Belsomra. Pollen.
Review of Systems
-
A 12 point ROS was completed and negative except as noted: Yes
Physical Exam
Vital Signs
Blood pressure 135/86. Heart rate 85. Respirations 18. Pulse ox 99% on room air.
Height 5 feet, 3 inches. Weight 98.4 kg. BMI 38.4.
Physical Exam
General: Well Developed, Well Nourished and No Apparent Distress
HEENT: NormoCephalic, Moist mucous membranes, Atraumatic and Other (Mild right eye visual defect. )
Respiratory: Clear
Cardiac: Regular Rhythm (with occasional ectopy. )
GI: Soft, Non Tender, Non Distended and Other (Obese. )
Musculoskeletal: No Edema and Other (Mild balance and gait disturbance noted. )
Skin: Warm and Dry
Neuro: AO x 3 and Nonfocal/grossly intact
Laboratory Results
-
EKG 11/29/2024: Sinus rhythm with first degree AV block and occasional PVCs. Left axis deviation. Pulmonary disease pattern. QTcB >= 480 msec.
Transesophageal echocardiogram 08/30/2024: Normal biventricular size and systolic function without regional wall motion abnormality. Estimated LVEF 60-65%. Aortic sclerosis without stenosis. No thrombus detected in the left atrial appendage.
Impression/Plan
-
IMPRESSION/PLAN:
1. Persistent atrial fibrillation: The patient is in need of a cardioversion with Dr. Leticia Gray on 12/01/2024. The benefits and risks of the procedure have been explained to the patient. The patient understands these risks and wishes to
proceed. She is aware to continue her Dabigatran uninterrupted pre-operatively. She will hold her Furosemide the morning of her procedure. She confirms her last dose of Mounjaro was 11/18/2024.
[2024-11-29 13:13] VITALS: BMI 38.4
--- NOTE | 2024-12-01 10:37 | ITS.CL.CARDI ---
[facility] [employer] - Cardioversion
Cardioversion
Procedure Report:
Date of Procedure:12/01/2024.
Procedure: Cardioversion.
Indication: Symptomatic atrial Flutter
Performing Physician: Leticia Gray MD
Technique: The patient was brought to the holding area. Signed informed consent was obtained. A time out was called and performed. The patient was sedated by a member of the anesthesia service. Anticoagulation status was reviewed and was
appropriate. R-2 pads were placed anteriorly and posteriorly. A 200 J synchronized biphasic shock restored normal sinus rhythm without significant bradycardia. There were no complications.
Conclusion: Uncomplicated cardioversion from atrial fibrillation to AV paced rhythm. This was confirmed with pacer interrogation.
Recommendation: Routine post cardioversion care. 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
cc: [facility]
== END 2024-12-01 11:11 | disposition home or self-care (01) ==
LOC: CATH 09:22
PROVIDERS: ATTENDING PHYSICIAN Internal Medicine Cardiovascular Disease; FAMILY PHYSICIAN Nurse Practitioner Primary Care; OTHER PHYSICIAN Internal Medicine
DX: I48.19 Other persistent atrial fibrillation (principal); I48.3 Typical atrial flutter; I11.0 Hypertensive heart disease with heart failure; I50.32 Chronic diastolic (congestive) heart failure; E78.5 Hyperlipidemia, unspecified; I49.5 Sick sinus syndrome; Z95.0 Presence of cardiac pacemaker; J44.89 Other specified chronic obstructive pulmonary disease; G47.33 Obstructive sleep apnea (adult) (pediatric); E11.40 Type 2 diabetes mellitus with diabetic neuropathy, unspecified; K21.9 Gastro-esophageal reflux disease without esophagitis; Z86.73 Personal history of transient ischemic attack (TIA), and cerebral infarction without residual deficits; Z85.43 Personal history of malignant neoplasm of ovary; E66.9 Obesity, unspecified; Z68.38 Body mass index [BMI] 38.0-38.9, adult; Z87.891 Personal history of nicotine dependence; Z79.01 Long term (current) use of anticoagulants; Z79.84 Long term (current) use of oral hypoglycemic drugs; Z79.85 Long-term (current) use of injectable non-insulin antidiabetic drugs
CPT/HCPCS: 92960; 93005